=== PATIENT | female | born 1975 | race Caucasian/White ===

== ENCOUNTER 2018-11-22 14:35 | Inpatient (IN) | payer MEDICAID ==
[~2018-11-22] VITALS: Ht 170.2 cm; Wt 65.4 kg
[2018-11-22 15:55] VITALS: BP 102/66
[2018-11-22 17:00] VITALS: BP 107/64
[2018-11-22] MEDS ORDERED: POTASSIUM CHLORIDE 20 MEQ ER TABLET PO ONE (17:30)
[2018-11-22] MEDS: RisperiDONE 3 MG TABLET PO SCH (19:17)
[2018-11-22] MEDS: LORazepam 2 MG TABLET PO PRN (19:20)
[2018-11-23 06:27] VITALS: BP 114/73
[2018-11-23 08:09] VITALS: BP 96/59
[2018-11-23 08:41] LABS: BASOPHILS % (AUTO) 0.7 % (0.0-2.0); EOSINOPHILS % (AUTO) 2.4 % (1.0-6.0); HEMATOCRIT 41.1 % (36-46); HEMOGLOBIN 13.6 g/dL (12.0-16.0); LYMPHOCYTES % (AUTO) 17.1 % (22.0-44.0); MEAN CORPUSCULAR HEMOGLOBIN 31.5 pg (26.0-34.0); MEAN CORPUSCULAR VOLUME 95 fL (80-100); MONOCYTES # (AUTO) 0.5 K/uL (0.1-1.0); MONOCYTES % (AUTO) 9.2 % (2.0-9.0); NEUTROPHILS # (AUTO) 4.1 K/uL (1.8-7.7); NEUTROPHILS % (AUTO) 70.6 % (40.0-70.0); PLATELET COUNT (AUTO) 174 K/uL (150-450); RED BLOOD CELL COUNT(AUTO) 4.31 MIL/uL (4.00-5.20)
[2018-11-23] MEDS: RisperiDONE 3 MG TABLET PO SCH ×2 (09:18→16:39)
[2018-11-23] MEDS: LORazepam 2 MG TABLET PO PRN (16:39)
[2018-11-23 16:45] VITALS: BP 127/77
[2018-11-24 06:17] VITALS: BP 105/64
[2018-11-24 08:26] VITALS: BP 112/69
[2018-11-24] MEDS: LORazepam 2 MG TABLET PO PRN ×2 (08:32→17:09)
[2018-11-24] MEDS: RisperiDONE 3 MG TABLET PO SCH ×2 (08:32→16:45)
[2018-11-24 16:09] VITALS: BP 98/66
[2018-11-24] MEDS: IBUPROFEN 600 MG TABLET PO PRN (17:42)
[2018-11-24] MEDS: ZOLPIDEM TARTRATE 10 MG TABLET PO PRN (20:30)
[2018-11-25 06:43] VITALS: BP 103/74
[2018-11-25] MEDS: RisperiDONE 3 MG TABLET PO SCH ×2 (08:19→16:59)
[2018-11-25 08:25] VITALS: BP 100/52
[2018-11-25 09:40] VITALS: BP 110/74
[2018-11-25] MEDS: LORazepam 2 MG TABLET PO PRN ×2 (09:47→20:26)
[2018-11-25 16:14] VITALS: BP 110/61
[2018-11-25] MEDS: IBUPROFEN 600 MG TABLET PO PRN (20:26)
[2018-11-26 05:44] VITALS: BP 90/50
[2018-11-26] MEDS: RisperiDONE 3 MG TABLET PO SCH ×2 (08:06→16:20)
[2018-11-26] MEDS: LORazepam 2 MG TABLET PO PRN ×2 (08:14→14:04)
[2018-11-26 08:19] VITALS: BP 119/64
[2018-11-26 16:45] VITALS: BP 111/66
[2018-11-26] MEDS: IBUPROFEN 600 MG TABLET PO PRN (16:45)
[2018-11-26] MEDS: ZOLPIDEM TARTRATE 10 MG TABLET PO PRN (20:15)
[2018-11-27] MEDS: RisperiDONE 3 MG TABLET PO SCH ×2 (08:19→16:40)
[2018-11-27 08:25] VITALS: BP 100/55
[2018-11-27 09:40] VITALS: BP 110/68
[2018-11-27] MEDS: LORazepam 2 MG TABLET PO PRN ×2 (09:40→16:41)
[2018-11-27 16:09] VITALS: BP 105/61
[2018-11-27] MEDS: IBUPROFEN 600 MG TABLET PO PRN (16:41)
[2018-11-27] MEDS: ZOLPIDEM TARTRATE 10 MG TABLET PO PRN (20:07)
[2018-11-28 05:22] VITALS: BP 138/92
[2018-11-28 08:31] VITALS: BP 119/78
[2018-11-28] MEDS: IBUPROFEN 600 MG TABLET PO PRN ×2 (08:32→15:16)
[2018-11-28] MEDS: LORazepam 2 MG TABLET PO PRN ×3 (08:32→19:39)
[2018-11-28] MEDS: RisperiDONE 3 MG TABLET PO SCH ×2 (08:32→17:21)
[2018-11-28 15:10] VITALS: BP 113/65
[2018-11-28 16:50] VITALS: BP 100/65
[2018-11-28] MEDS: ZOLPIDEM TARTRATE 10 MG TABLET PO PRN (20:37)
[2018-11-29 06:17] VITALS: BP 102/63
[2018-11-29 08:15] VITALS: BP 100/60
[2018-11-29] MEDS: RisperiDONE 3 MG TABLET PO SCH (08:45)
[2018-11-29 11:40] VITALS: BP 110/74
[2018-11-29] MEDS: LORazepam 2 MG TABLET PO PRN (11:49)
[2018-11-29 13:24] VITALS: BP 112/72
[2018-11-29] MEDS: IBUPROFEN 600 MG TABLET PO PRN (13:24)
[2018-11-29] MEDS ORDERED: RISP3TAB44 PO (14:04)
== END 2018-11-29 15:00 | disposition home or self-care (01) | DRG 750 ==
LOC: EDSEX → B3A 16:44
PROVIDERS: ADMIT Psychiatry & Neurology Psychiatry; ATTEND Psychiatry & Neurology Psychiatry
DX: F20.9 Schizophrenia, unspecified (principal); R45.851 Suicidal ideations; Z88.0 Allergy status to penicillin; Z88.2 Allergy status to sulfonamides; Z91.012 Allergy to eggs
CPT/HCPCS: 84132